=== PATIENT | male | born 1955 | race Caucasian/White ===

== ENCOUNTER 2017-11-25 14:23 | Inpatient (IN) ==
[2017-11-25] MEDS ORDERED: hydrALAZINE 20 MG/1 ML VIAL IV PRN (14:36)
[2017-11-25] MEDS ORDERED: ACETAMINOPHEN 325 MG TABLET PO PRN (14:36)
[2017-11-25] MEDS ORDERED: ONDANSETRON 4 MG/2 ML VIAL IV PRN (14:36)
[2017-11-25] MEDS ORDERED: ZALEPLON 5 MG CAPSULE PO PRN (14:36)
[2017-11-25] MEDS ORDERED: NITROGLYCERIN SL 0.4 MG TABLET SL PRN (14:41)
[2017-11-25 17:36] LABS: Basophils # 0.1 10*3/uL (0.0-0.2); Basophils % 0.7 % (0.0-0.8); Eosinophils # 0.1 10*3/uL (0.0-0.87); Eosinophils % 1.7 % (0.00-10.9); Hematocrit 40.8 VOL% (42.0-52.0); Hemoglobin 13.9 GM/DL (14.0-18.0); Immature Granulocytes % 0.3 %; Immature Granulocytes Absolute 0.02 #; Lymphocytes # 1.6 10*3/uL (1.4-4.0); Lymphocytes % 22.6 % (21.2-54.2); Mean Corpuscular HGB Conc 34.1 GM/DL (32-36); Mean Corpuscular Hemoglobin 29 PG (27-34); Mean Corpuscular Volume 86.4 FL (87-102); Mean Platelet Volume 9.2 FL (9.6-12.0); Monocytes # 0.4 10*3/uL (0.11-0.8); Monocytes % 4.9 % (1.7-12.7); Neutrophils % 69.8 % (38.7-73.9); Platelet Count 259 T/CUMM (130-400); Red Blood Count 4.72 MC/CUMM (3.8-5.5); Red Cell Distribution Width 12.1 % (9.3-17.3); White Blood Count 7.2 T/CUMM (4-12)
[2017-11-25] MEDS ORDERED: ENOXAPARIN 40 MG/0.4 ML SYRINGE SUBCUT SCH (18:00)
[2017-11-25 18:29] LABS: Calcium 8.7 MG/DL (8.5-10.1); Osmolality,Calculated 282.3 MOS/KG (273-304); Potassium 4.1 MMOL/L (3.5-5.1); Risk Ratio 7.93; Thyroid Stimulating Hormone 1.12 uIU/ml (0.358-3.74)
[2017-11-25] MEDS: SODIUM CHLORIDE 0.9% 1,000 ML IV SCH (19:44)
[2017-11-25] MEDS ORDERED: ENOXAPARIN 120 MG/0.8 ML SYRINGE SUBCUT ONE (20:03)
[2017-11-25] MEDS ORDERED: diphenhydrAMINE CAP 25 MG CAPSULE PO ONE (20:04)
[2017-11-25] MEDS ORDERED: DIAZEPAM 5 MG TABLET PO ONE (20:04)
[2017-11-25] MEDS ORDERED: METOPROLOL TARTRATE 25 MG TABLET PO SCH (21:00)
[2017-11-25] MEDS: ATORVASTATIN 80 MG TABLET PO SCH (21:24)
[2017-11-25] MEDS: LISINOPRIL 10 MG TABLET PO SCH (21:24)
[2017-11-26 04:55] LABS: Basophils # 0.1 10*3/uL (0.0-0.2); Basophils % 0.5 % (0.0-0.8); Eosinophils # 0.2 10*3/uL (0.0-0.87); Eosinophils % 1.6 % (0.00-10.9); Hematocrit 41.7 VOL% (42.0-52.0); Hemoglobin 13.8 GM/DL (14.0-18.0); Immature Granulocytes % 0.4 %; Immature Granulocytes Absolute 0.04 #; Lymphocytes # 2.3 10*3/uL (1.4-4.0); Lymphocytes % 25.3 % (21.2-54.2); Mean Corpuscular HGB Conc 33.1 GM/DL (32-36); Mean Corpuscular Hemoglobin 29 PG (27-34); Mean Corpuscular Volume 87.6 FL (87-102); Mean Platelet Volume 9.2 FL (9.6-12.0); Monocytes # 0.5 10*3/uL (0.11-0.8); Monocytes % 5.1 % (1.7-12.7); Neutrophils # 6.1 10*3/uL (1.4-7.4); Neutrophils % 67.1 % (38.7-73.9); Platelet Count 227 T/CUMM (130-400); Red Blood Count 4.76 MC/CUMM (3.8-5.5); Red Cell Distribution Width 12.2 % (9.3-17.3); White Blood Count 9.1 T/CUMM (4-12)
[2017-11-26 05:26] LABS: Calcium 8.2 MG/DL (8.5-10.1); Osmolality,Calculated 282.3 MOS/KG (273-304)
[2017-11-26] MEDS ORDERED: diphenhydrAMINE CAP 25 MG CAPSULE PO ONE (06:30)
[2017-11-26] MEDS ORDERED: DIAZEPAM 5 MG TABLET PO ONE (06:30)
[2017-11-26] MEDS ORDERED: HEPARIN/NACL 0.9% 2 UNITS/ML 1,000 ML IV ONE (06:44)
[2017-11-26] MEDS ORDERED: ASPIRIN CHEW 81 MG TABLET PO ONE (06:57)
[2017-11-26] MEDS: ASPIRIN EC 81 MG TABLET PO SCH ×2 (06:59→09:36)
[2017-11-26] MEDS: LISINOPRIL 10 MG TABLET PO SCH (06:59)
[2017-11-26] MEDS ORDERED: MIDAZOLAM 2 MG/2 ML VIAL ONE (07:14)
[2017-11-26] MEDS ORDERED: fentaNYL 100 MCG/2 ML VIAL ONE (07:15)
[2017-11-26] MEDS ORDERED: VERAPAMIL 5 MG/2 ML VIAL ONE (07:20)
[2017-11-26] MEDS ORDERED: NITROGLYCERIN DRIP 50 MG/250 ML BOTTLE IV ONE (07:20)
[2017-11-26] MEDS ORDERED: ENOXAPARIN 60 MG/0.6 ML SYRINGE ONE (07:24)
[2017-11-26] MEDS ORDERED: TICAGRELOR 90 MG TABLET ONE (07:31)
[2017-11-26] MEDS ORDERED: ZALEPLON 5 MG CAPSULE PO PRN (08:03)
[2017-11-26] MEDS: SODIUM CHLORIDE 0.9% 1,000 ML IV SCH ×2 (08:39→14:37)
[2017-11-26] MEDS: PANTOPRAZOLE 40 MG TABLET PO SCH (08:40)
[2017-11-26] MEDS: METOPROLOL TARTRATE 25 MG TABLET PO SCH ×2 (08:40→21:04)
[2017-11-26] MEDS: TICAGRELOR 90 MG TABLET PO SCH ×2 (09:36→21:03)
[2017-11-26] MEDS: ATORVASTATIN 80 MG TABLET PO SCH (21:03)
[2017-11-27] MEDS: SODIUM CHLORIDE 0.9% 1,000 ML IV SCH ×2 (00:51→02:47)
[2017-11-27 03:23] LABS: Basophils % 0.6 % (0.0-0.8); Eosinophils # 0.2 10*3/uL (0.0-0.87); Hematocrit 37.4 VOL% (42.0-52.0); Hemoglobin 12.4 GM/DL (14.0-18.0); Immature Granulocytes % 0.3 %; Immature Granulocytes Absolute 0.02 #; Lymphocytes % 30.3 % (21.2-54.2); Mean Corpuscular HGB Conc 33.2 GM/DL (32-36); Mean Corpuscular Hemoglobin 29 PG (27-34); Mean Corpuscular Volume 88.6 FL (87-102); Mean Platelet Volume 9.5 FL (9.6-12.0); Monocytes # 0.4 10*3/uL (0.11-0.8); Monocytes % 6.1 % (1.7-12.7); Neutrophils % 59.7 % (38.7-73.9); Platelet Count 200 T/CUMM (130-400); Red Blood Count 4.22 MC/CUMM (3.8-5.5); Red Cell Distribution Width 12.1 % (9.3-17.3); White Blood Count 6.7 T/CUMM (4-12)
[2017-11-27 04:04] LABS: Calcium 7.7 MG/DL (8.5-10.1); Osmolality,Calculated 286.8 MOS/KG (273-304); Potassium 3.8 MMOL/L (3.5-5.1)
[2017-11-27 08:09] VITALS: BP 119/67
[2017-11-27] MEDS: TICAGRELOR 90 MG TABLET PO SCH (08:36)
[2017-11-27] MEDS: PANTOPRAZOLE 40 MG TABLET PO SCH (08:36)
[2017-11-27] MEDS: ASPIRIN EC 81 MG TABLET PO SCH (08:36)
[2017-11-27] MEDS: METOPROLOL TARTRATE 25 MG TABLET PO SCH (08:36)
[2017-11-27] MEDS ORDERED: LISINOPRIL 5 MG TABLET PO SCH (09:00)
== END 2017-11-27 10:12 | disposition home or self-care (01) | DRG 247 ==
LOC: N.2W 16:14 → N.TELEN 17:04
PROVIDERS: ADMIT Internal Medicine Cardiovascular Disease; ATTEND Internal Medicine Cardiovascular Disease
PROC: CLCCHCL (ICD-10-PCS; 2017-11-26 07:45)